=== PATIENT | female | born 1960 | race Caucasian/White ===

== ENCOUNTER 2017-06-14 08:44 | Emergency (ER) | payer OTHER ==
[~2017-06-14] VITALS: Ht 175.3 cm; Wt 90.7 kg
[~2017-06-14 08:44] MED LIST: AUGMENTIN 875875 MG PO; MEDROL DOSEPAK1 PAC PO; POLYTRIM O200 GTT/BO OD
[2017-06-14 08:52] VITALS: BP 163/90
[2017-06-14] MEDS ORDERED: KEFLEX500 M1 PO (09:29)
[2017-06-14] MEDS ORDERED: IBUPROFEN800 M1 PO (09:30)
--- NOTE | 2017-06-14 09:30 | ED SKIN/ALLERGY COMPLAINT ---
History of Present Illness General Chief Complaint: General Adult Stated Complaint: SWOLLEN R EYE AND ?SPIDER BITE L FOREARM Source: patient Exam Limitations: no limitations Vital Signs & Intake/Output Vital Signs & Intake/Output Vital Signs Date Time Temp Pulse Resp B/P B/P Pulse O2 O2 Flow FiO2 Mean Ox Delivery Rate 06/14 0852 98.6 83 18 163/90 98 Room Air Allergies Coded Allergies: NO KNOWN ALLERGIES (08/28/16) Reconcile Medications Cephalexin (Keflex) 500 MG CAPSULE 1 CAP PO Q6H CELLULITIS Ibuprofen 800 MG TABLET 1 TAB PO TID PRN PAIN Triage Note: 56 YO FEMALE TO TRIAGE C/O ?SPIDER BITE TO L FOREARM. PT NOTED WITH SWELLING/REDNESS/WARMTH TO L FOREARM. NOTED WITH SWELLING UNDERNEATH L EYE. Triage Nurses Notes Reviewed? yes Onset: Abrupt Duration: day(s): (2-3), constant, continues in ED, getting worse Timing: single episode today Severity: moderate, severe Severity Numbers: 7 Location: face, extremities Possible Factors: insect bite No Modifying Factors: none Associated Symptoms: swelling/mass/lumps LMP (ages 10-50): unknown : No Patient currently breastfeeds: No HPI: 56-year-old female with no synechia past medical history presents for evaluation of a painful red swollen area to her left forearm and beneath her right eye. Patient states she was working in her garden several days prior to presentation when she was bitten by unknown insects to the left forearm and beneath the right eye. She states that the areas are red and warm itchy and painful. The redness has been spreading. There's been no discharge no fever. She is nondiabetic has no medical problems is not taking any medicine for this. (Al Hammer) Past History Travel History Traveled to [place] past 21 day No Medical History Any Pertinent Medical History? see below for history Neurological: NONE EENT: NONE Cardiovascular: NONE Respiratory: NONE Gastrointestinal: NONE Hepatic: NONE Renal: NONE Musculoskeletal: NONE Psychiatric: NONE Endocrine: NONE Blood Disorders: NONE Cancer(s): NONE MUCK BOSS/Reproductive: NONE Surgical History Surgical History: non-contributory Psychosocial History What is your primary language Upper Sorbian Tobacco Use: Never used Family History Hx Contributory? No (Al Hammer) Review of Systems Review of Systems Constitutional: Reports: no symptoms. EENTM: Reports: no symptoms. Respiratory: Reports: no symptoms. Cardiovascular: Reports: no symptoms. GI: Reports: no symptoms. Genitourinary: Reports: no symptoms. Musculoskeletal: Reports: no symptoms. Skin: Reports: see HPI, erythema, lesions. Neurological/Psychological: Reports: no symptoms. Hematologic/Endocrine: Reports: no symptoms. Immunologic/Allergic: Reports: no symptoms. All Other Systems: Reviewed and Negative (Al Hammer) Physical Exam Physical Exam General Appearance: well developed/nourished, no apparent distress, alert, awake Head: atraumatic, normal appearance Eyes: Bilateral: normal appearance, PERRL, EOMI. Ears, Nose, Throat: normal pharynx, normal ENT inspection, hearing grossly normal Neck: normal inspection, supple, full range of motion Respiratory: normal breath sounds, chest non-tender, no respiratory distress, lungs clear Cardiovascular: regular rate/rhythm, normal peripheral pulses Peripheral Pulses: 2+ radial (R), 2+ radial (L) Gastrointestinal: soft, non-tender Back: normal inspection, normal range of motion Extremities: normal range of motion, no edema, LEFT ANTERIOR FOREARM: tHERE IS A 4 CM DIAMETER AREA OF ERYTHEMA AND SWELLING AND WARMTH LOCATED ON THE ANTERIOR LEFT FOREARM. tHE AREA IS TENDER TO PALPATION. nO FOCAL FLUCTUANT AREAS OR DISCHARGE. tHERE IS A CENTRAL AREA OF DEEPER ERYTHEMA WITH AN AREA OF BROKEN SKIN. Neurologic/Psych: no motor/sensory deficits, awake, alert, oriented x 3, normal gait, normal mood/affect Skin: intact, normal color, warm/dry Skin Problem Location: face, upper extremities Skin Problem Character: erythema, THERE IS ALSO AN AREA OF ERYTHEMA AND SWELLING IN THE RIGHT INFERIOR PERIORBITAL AREA. nO FOCAL FLUCTUANT AREAS NO DISCHARGE. nO SIGNS OF CONJUNCTIVITIS OR BLEPHARITIS. eXTRAOCULAR MOTION IS INTACT WITHOUT PAIN Lymphatic: no anterior cervical vi (Jluis SILVAAl) Progress Differential Diagnosis: abscess/cellulitis, allergic reaction, angioedema, contact dermatitis, drug reaction, toxic shock syndrome, urticaria Plan of Care: Patient seen and evaluated. She appears to have insect bites to the right inferior periorbital area and left forearm. Concern for cellulitis given the spreading redness worsening pain. No signs of abscess patient is afebrile she's not a diabetic. She'll be started on cephalexin. Advised using Benadryl for itchiness ibuprofen for pain and swelling. Apply warm compresses. [place] for signs of spreading infection. Discussed return precautions in detail. Follow- up with primary care doctor for a recheck in a few days return sooner with any concerns. (Al Hammer) Departure Departure Disposition: HOME OR SELF CARE Condition: Stable Clinical Impression Primary Impression: Cellulitis Qualifiers: Site of cellulitis: extremity Site of cellulitis of extremity: upper extremity Laterality: left Qualified Code: L03.114 - Cellulitis of left upper limb Referrals: Ele JOHNSON,Cindy Alas (PCP/Family) Additional Instructions: Take antibiotics as directed for the full course. Use ibuprofen 800 mg every 8 hours with food as needed for pain and swelling. Benadryl 50 mg every 6 hours as needed for itching this may cause drowsiness. Apply warm compresses 15-20 minutes every few hours. [place] for signs of spreading infection like worsening swelling spreading redness discharge, FEVER or pain. Make a follow-up with your primary care doctor for a recheck in 2 or 3 days. Return sooner with any concerns. Departure Forms: Customer Survey General Discharge Information Prescriptions: Current Visit Scripts Cephalexin (Keflex) 1 CAP PO Q6H #28 CAP Ibuprofen 1 TAB PO TID PRN PAIN #30 TAB (Al Hammer) PA/CO DIRECTOR Co-Sign Statement Statement: ED Attending supervision documentation- [] I saw and evaluated the patient. I have also reviewed all the pertinent lab results and diagnostic results. I agree with the findings and the plan of care as documented in the PA's/CO DIRECTOR's documentation. [] I have reviewed the ED Record and agree with the PA's/CO DIRECTOR's documentation. [X] Additions or exceptions (if any) to the PAs/CO DIRECTOR's note and plan are summarized below: [] (Blayne Coats DO)
== END 2017-06-14 09:38 ==
LOC: ERH 08:44
DX: L03.114 Cellulitis of left upper limb (principal); L03.211 Cellulitis of face